=== PATIENT | female | born 1985 | race Caucasian/White ===

== ENCOUNTER 2018-11-14 20:36 | Emergency (ER) | payer OTHER ==
[2018-11-14 20:45] VITALS: PULSE 86; TEMP 98.5; BMI 31.1
--- NOTE | 2018-11-14 20:45 | PDOC ---
Rapid Medical Evaluation Time Seen by Provider: 11/14/18 20:38 Medical Evaluation: Allergies Allergy/AdvReac Type Severity Reaction Status Date / Time No Known Allergies Allergy Verified 06/05/16 07:56 11/14/18 20:42 I have performed a brief in-person evaluation of this patient. The patient presents with a chief complaint of: S/p dental extraction yesterday , on amox and tylenol #3 and now p/w epigastric pain which she has never had before. No n/v/d or fever Pertinent physical exam findings:Stable w/+ttp to epigastrium I have ordered the following:ua/preg The patient will proceed to the ED for further evaluation. Discharge Disposition - Diagnosis Epigastric abdominal pain - Referrals - Patient Instructions - Post Discharge Activity
[2018-11-14] MEDS ORDERED: SODIUM CHLORIDE 1,000 ML IV STA (21:08)
[2018-11-14] MEDS ORDERED: morphine CARPU-JECT 2 MG/1 ML DISP.SYRIN IVPUSH ONE (21:08)
--- NOTE | 2018-11-14 21:10 | PDOC ---
History of Present Illness - General Chief Complaint: Pain Stated Complaint: ABD PAIN & TOOTHACHE Time Seen by Provider: 11/14/18 20:38 - History of Present Illness Initial Comments: 11/14/18 21:10 Patient is a 33 year old female presents to the ED with complains of severe abdominal pain x 2 days. As per the patient, the pain started suddenly, located in the epigastric area, radiating towards the back, increasing in intensity, now 10/10, not associated with nausea, vomiting or diarrhoea but has decreased PO intake. Patient states she had a dental extraction done yesterday, has been taking the prescribed meds: Amoxicillin, Oxycodone and Ibuprofen. She states her abdominal pain started before she took the medications. Denies fever, chills, rigors, sweating, chest pain, sob, cough, palpitation, headache, loc. Bowel/Bladder habit normal. LMP: 11/13/18 Past Medical history: 4 c sections, last C-sec in 2017 complicated by bladder wall injury s/p repair. 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 Past History - Travel Traveled outside of the country in the last 30 days: No Close contact w/someone who was outside of country & ill: No - Past Medical History Allergies/Adverse Reactions: Allergies Allergy/AdvReac Type Severity Reaction Status Date / Time No Known Allergies Allergy Verified 11/14/18 20:45 Home Medications: Ambulatory Orders Ferrous Gluconate [Iron] 256 mg PO DAILY 03/07/16 Vit/Iron Fum/Folic AC [ Tablet] 1 each PO DAILY 03/07/16 Cephalexin [Keflex] 250 mg PO BID #20 capsule MDD 2 06/08/16 Ibuprofen [Motrin -] 600 mg PO QID #28 tablet 06/09/16 Oxycodone HCl/Acetaminophen [Percocet 5-325 mg Tablet] 1 tab PO Q6H PRN #30 tablet MDD 4 06/09/16 Calcium Carbonate/Simethicone [Maalox Advanced Tab Chew] 1 each PO Q6H PRN #28 tab.chew 11/14/18 Famotidine [Pepcid] 20 mg PO BID PRN #10 tablet 11/14/18 Asthma: No Cancer: No Cardiac Disorders: No COPD: No Diabetes: No HTN: No Seizures: No Thyroid Disease: No - Suicide/Smoking/Psychosocial Hx Smoking History: Never smoked Have you smoked in the past 12 months: No Hx Alcohol Use: No Drug/Substance Use Hx: No Hx Substance Use Treatment: No Review of Systems - Review of Systems Able to Perform ROS?: Yes *Physical Exam - Vital Signs Last Vital Signs Temp Pulse Resp BP Pulse Ox 98.5 F 86 18 108/72 96 11/14/18 20:41 11/14/18 20:41 11/14/18 20:41 11/14/18 20:41 11/14/18 20:41 - Physical Exam Comments: 11/14/18 21:51 General: Young female, lying in bed moaning of abdominal pain, awake, alert, oriented x 3, in no acute respiratory distress. HEENT: EOM intact, no pallor or icterus. Chest: B.L lungs clear, no added sounds CVS: Regular rate and rhythm, S1, S2, no murmur Abdomen: Soft, tenderness in the epigastric area, no organomegaly. Ext: No edema ED Treatment Course - LABORATORY CBC & Chemistry Diagram: 11/14/18 21:30 11/14/18 21:30 Medical Decision Making - Medical Decision Making 11/14/18 21:53 Patient is a 33 year old female PMHx of 4 c sections, last one complicated with bladder wall injury, tooth extraction yesterday comes in with severe epigastric pain. D/D: Gastritis Will order basic labs, UA --1L of NS --Morphine 2mg IV --Protonix 40mg IV 11/14/18 22:21 Labs normal 11/14/18 22:31 Patient is feeling better. Will give Maalox and PO tylenol. If she tolerates, will discharge her home. *DC/Admit/Observation/Transfer Diagnosis at time of Disposition: Epigastric abdominal pain - Discharge Dispostion Disposition: HOME Decision to Admit order: No - Prescriptions Prescriptions: Calcium Carbonate/Simethicone [Maalox Advanced Tab Chew] 1 each PO Q6H PRN #28 tab.chew PRN Reason: Dyspepsia Famotidine [Pepcid] 20 mg PO BID PRN #10 tablet PRN Reason: Dyspepsia - Referrals Referrals: Margret Mendoza MD [Primary Care Provider] - - Patient Instructions Additional Instructions: You were evaluated in the ED for severe epigastric pain, it was most likely because you are on antibiotics and Ibuprofen. Please make sure to drink plenty of water and take those medications with food. If you still experience epigastric burning pain, please take Maalox and Pepcid 20mg twice a day. Please make an appointment and follow up with your primary physician within this week. If your symptoms get worse or you develop any new symptoms, please come to the ED immediately. Fue evaluado en el servicio de urgencias para el dolor epigstrico chintan, lo ms probable es que est tomando antibiticos e ibuprofeno. Por favor, asegrese de beber denae agua y carolina esos medicamentos con alimentos. Si an experimenta dolor de ardor epigstrico, tome Maalox y Pepcid 20 mg dos veces al da. Por favor himanshu saravanan shekhar y himanshu un seguimiento con lynn mdico de cabecera dentro de esta semana. Si nitin sntomas empeoran o si presenta sntomas nuevos, acuda al servicio de urgencias de inmediato. - Post Discharge Activity
[2018-11-14] MEDS ORDERED: MORPHINE SULFATE 2 MG/ML VIAL ONE (21:18)
[2018-11-14 21:44] LABS: HEMOGLOBIN 13.9 GM/dL (10.7-15.3); MCHC 33.8 g/dl (32.0-36.0); MEAN CELL VOLUME 88.8 fl (80-96); PLATELET COUNT 154 K/MM3 (134-434); RBC 4.62 M/mm3 (3.60-5.2); RDW 13.1 % (11.6-15.6); WHITE BLOOD COUNT 7.1 K/mm3 (4.0-10.0)
[2018-11-14] MEDS ORDERED: PANTOPRAZOLE SODIUM 40 MG VIAL IVPUSH ONE (21:58)
[2018-11-14 22:11] LABS: ALBUMIN 3.6 g/dl (3.4-5.0); BILIRUBIN,TOTAL 0.2 mg/dL (0.2-1); BLOOD UREA NITROGEN 6.6 mg/dL (7-18); POTASSIUM 4.1 mmol/L (3.5-5.1); TOT PROT 7.3 g/dl (6.4-8.2)
[2018-11-14 22:12] LABS: CREATININE 0.8 mg/dL (0.55-1.3)
--- NOTE | 2018-11-14 22:13 | PDOC ---
Documentation entered by Malcolm Morocho SCRIBE, acting as scribe for Alea Vasquez MD. Alea Vasquez MD: This documentation has been prepared by the Rashawn sim Elijah, SCRIBE, under my direction and personally reviewed by me in its entirety. I confirm that the documentation accurately reflects all work, treatment, procedures, and medical decision making performed by me. Attending Attestation - Resident Resident Name: Juanita Steele - ED Attending Attestation I have performed the following: I have examined & evaluated the patient, The case was reviewed & discussed with the resident, I agree w/resident's findings & plan - HPI HPI: 11/14/18 21:35 Patient is a 33 year old female with a significant past medical history of 4 C- sections (last C-sec in 2017 complicated by bladder wall injury s/p repair) who presents to the ED with epigastric abdominal pain x 2 days, beginning yesterday. The patient reports the pain as severe, cramping, 10/10 intensity and is associated with a decreased PO intake. The patient had dental surgery the day prior and was prescribed Amoxicillin, Oxycodone, and Ibuprofen which she has been taking since yesterday. Denies fever, chills, chest pain, SOB, palpitation, dizziness, weakness, N, V, D , abdominal pain, bladder and bowel problems, leg swelling, No sick contacts or travel. No new changes in medications. No suspicious food intake Allergies: None Past Medical History: as documented in EMR/HPI Social history: Lives with family. No tobacco, ETOH or drug use. Surgical history: As mentioned above Meds: as documented in EMR PMD: Dr. Mendoza 11/14/18 22:48 - Physicial Exam PE: 11/14/18 22:13 Agree with the resident's HPI and PE as documented in the electronic medical record. NAD, well appearing, EOMI, PERRL, MMM, nl conjunctiva, anicteric; neck supple. lungs clear, RRR, abdomen soft +epigastric TTP, no Quiles's sign. no flank tenderness. Back nontender. CARVALHO x4, No peripheral edema. normal color for ethnicity, WWP. 11/14/18 22:46 11/14/18 22:48 - Medical Decision Making 11/14/18 22:47 hpi as documented VS reviewed, wnl DDx abdominal pain: Renal colic, biliary colic, metabolic/electrolyte derangements. GERD, PUD, esophageal spasm, pancreatitis, hepatitis, constipation , colitis, gastroenteritis, cholecystitis, medication side effect, hernia ED course: analgesia, IVF and maalox. GI cocktail no quiles's sign more likely amoxicillin effect, ?dyspepsia vs PUD vs GERD onset of sx overlapping with initiation of amoxicillin and menses take meds with food, avoid nsaids in case of gastritis clinically doubt biliary, cholecystitis or intra abdominal pathology. supportive care, otc pepcid and maalox, take abx with food to prevent trigger. Pt to be discharged in stable condition. Patient and family made aware of clinical impression, treatment recommendations and disposition plan, return precautions discussed (including but not limited to new or persistent/worsening symptoms, pain, fevers, or signs of infection, chest pain, respiratory distress , inability to tolerate oral intake, dehydration, syncope, or neurologic changes ). Follow up with PMD and/or GI specialist as recommended, follow up information provided, take medications as instructed for duration of time. continue with supportive care, avoid triggers and precipitants. All questions answered to patient's satisfaction and expressed understanding and comfort with this. At the time of discharge, the patient is alert, clinically improved, tolerating po and verbalizes understanding of instructions, satisfied with the care received and felt comfortable with the plan. Patient does not suffer from an acute life-threatening medical condition at this time and is safe for outpatient follow-up. 11/14/18 22:49
[2018-11-14] MEDS ORDERED: MAG HYDROX/AL HYDROX/SIMETH 30 ML UNIT-DOSE CUP PO ONE (22:19)
[2018-11-14] MEDS ORDERED: ACETAMINOPHEN 325 MG TABLET (FP) PO ONE (22:31)
[2018-11-14 23:16] VITALS: BP 109/68
[2018-11-14] MEDS ORDERED: PANTOPRAZOLE SODIUM 40 MG VIAL ONE (23:28)
[2018-11-14] MEDS ORDERED: MAG HYDROX/AL HYDROX/SIMETH 30 ML UNIT-DOSE CUP ONE (23:28)
== END 2018-11-14 23:39 | disposition home or self-care (01) ==
LOC: JER 20:36
PROC: 3E0337Z Introduction of Electrolytic and Water Balance Substance into Peripheral Vein, Percutaneous Approach (ICD-10-PCS; principal; 2018-11-14)
PROC: 3E033NZ Introduction of Analgesics, Hypnotics, Sedatives into Peripheral Vein, Percutaneous Approach (ICD-10-PCS; 2018-11-14)
DX: R10.13 Epigastric pain (principal)
CPT/HCPCS: 36415; 80053; 83605; 83690; 85027; 96361; 96374; 99282-25; J7030

== ENCOUNTER 2019-01-25 22:05 | Emergency (ER) | payer OTHER ==
[2019-01-25 22:17] VITALS: BP 102/70; PULSE 73; TEMP 98.2; BMI 31.1
--- NOTE | 2019-01-25 23:38 | PDOC ---
Attending Attestation - Resident Resident Name: Mateo Antony - ED Attending Attestation I have performed the following: I have examined & evaluated the patient, The case was reviewed & discussed with the resident, I agree w/resident's findings & plan, Exceptions are as noted - HPI HPI: 01/25/19 23:37 33 yo female p/w 3 days of dizziness,anxiety,syncopal episodes at home yesterday and the day prior, . she was already at the hospital earlier today for pelvic ultrasound for that showed IUD placement and no other significant findings 01/26/19 01:01 01/26/19 01:03 - Physicial Exam PE: 01/26/19 01:03 wnwd 33 yo female seated in chair and she is not in any acute distress head ncat eyes eomi neck supple lungs cta b/l cvs [id number] abd no rebound, no guarding no cva tenderness skin warm and dry neuro axox3,ambulatory 01/26/19 01:05 - Medical Decision Making 01/26/19 01:09 ekg sinus bradycardia @ 58 bpm 01/26/19 01:12 psh c section x 4, bladder wall injury s/p repair pt was upset with her care because it was taking too long she refused to sign any AMA documentation and stated she ws going to [facility] and left
[2019-01-25] MEDS ORDERED: LACTATED RINGERS SOLUTION 1000 ML INFUS.BAG IV ONE (23:46)
--- NOTE | 2019-01-26 00:05 | PDOC ---
History of Present Illness - General Chief Complaint: Pain Stated Complaint: NAUSEA Time Seen by Provider: 01/25/19 22:37 History Source: Patient - History of Present Illness Initial Comments: 01/26/19 01:44 Ms. Giles is a 33 y/o woman with no PMH presenting with a 3 day history of dizziness, anxiety, and 2x episodes of syncopal episodes at home. She reports that 3 days ago she was prescribed doxycycline for a UTI by her PCP. She reports that since starting the medication she has noted anxiety as well as dizziness. She reports that 3 days ago after taking her first dose of the doxycycline, she became lightheaded when standing from her bed and lost consciousness. She reports that her mother found her on the ground. She reports that she does not remember the entire fall. She denies any head or neck pain or stiffness. She reports a second syncopal episode the following day at home, and at that point became concerned that the anxiety and lightheadedness were due to more than "stress at work". She presented earlier today for a transvaginal ultrasound ordered by her PCP due to several months of ongoing vaginal bleeding that has been present since her IUD placement in June. She denies any history of prior syncopal episodes, any chest pain, shortness of breath, night sweats, known cardiac history. She reports that she has an appointment with her PCP in two weeks (02/05/2019). She reports allergy to amoxicillin. PCP: Remberto Carlin Past History - Past Medical History Allergies/Adverse Reactions: Allergies Allergy/AdvReac Type Severity Reaction Status Date / Time No Known Allergies Allergy Verified 01/25/19 22:11 Home Medications: Ambulatory Orders Ferrous Gluconate [Iron] 256 mg PO DAILY 03/07/16 Vit/Iron Fum/Folic AC [ Tablet] 1 each PO DAILY 03/07/16 Cephalexin [Keflex] 250 mg PO BID #20 capsule MDD 2 06/08/16 Ibuprofen [Motrin -] 600 mg PO QID #28 tablet 06/09/16 Oxycodone HCl/Acetaminophen [Percocet 5-325 mg Tablet] 1 tab PO Q6H PRN #30 tablet MDD 4 06/09/16 Calcium Carbonate/Simethicone [Maalox Advanced Tab Chew] 1 each PO Q6H PRN #28 tab.chew 11/14/18 Famotidine [Pepcid] 20 mg PO BID PRN #10 tablet 11/14/18 Asthma: No Cancer: No Cardiac Disorders: No COPD: No Diabetes: No HTN: No Seizures: No Thyroid Disease: No - Suicide/Smoking/Psychosocial Hx Smoking History: Never smoked Have you smoked in the past 12 months: No Hx Alcohol Use: No Drug/Substance Use Hx: No Hx Substance Use Treatment: No Review of Systems - Review of Systems Able to Perform ROS?: Yes Comments:: 01/26/19 01:40 ROS: GENERAL/CONSTITUTIONAL: No fever or chills. No weakness. HEAD, EYES, EARS, NOSE AND THROAT: No change in vision. No ear pain or discharge. No sore throat. CARDIOVASCULAR: No chest pain or shortness of breath RESPIRATORY: No cough, wheezing, or hemoptysis. GASTROINTESTINAL: Nausea. No vomiting, diarrhea or constipation. GENITOURINARY: Vaginal bleeding, discharge. UTI in treatment. MUSCULOSKELETAL: No joint or muscle swelling or pain. No neck or back pain. SKIN: No rash NEUROLOGIC: Headache, anxiety, loss of conciousness x2. No vertigo, or change in strength/sensation. ENDOCRINE: No increased thirst. No abnormal weight change HEMATOLOGIC/LYMPHATIC: No known anemia, easy bleeding, or history of blood clots. ALLERGIC/IMMUNOLOGIC: No hives or skin allergy. *Physical Exam - Vital Signs Last Vital Signs Temp Pulse Resp BP Pulse Ox 98.2 F 73 16 102/70 100 01/25/19 22:12 01/25/19 22:12 01/25/19 22:12 01/25/19 22:12 01/25/19 22:12 - Physical Exam Comments: 01/26/19 01:43 PE: GENERAL: Awake, alert, and fully oriented, in no acute distress HEAD: No signs of trauma, normocephalic, atraumatic EYES: PERRLA, EOMI, sclera anicteric, conjunctiva clear ENT: Auricles normal inspection, hearing grossly normal, nares patent, oropharynx clear without exudates. Moist mucosa NECK: Normal ROM, supple, no lymphadenopathy, JVD, or masses LUNGS: No distress, speaks full sentences, clear to auscultation bilaterally HEART: Regular rate and rhythm, normal S1 and S2, no murmurs, rubs or gallops, peripheral pulses normal and equal bilaterally. ABDOMEN: Soft, nontender, normoactive bowel sounds. No guarding, no rebound. No masses EXTREMITIES : Normal inspection, Normal range of motion, no edema. No clubbing or cyanosis NEUROLOGICAL: Cranial nerves II through XII grossly intact. Normal speech, normal gait, no focal sensorimotor deficits SKIN: Warm, Dry, normal turgor, no rashes or lesions noted Medical Decision Making - Medical Decision Making 33 y/o F with 2x syncopal episodes over last 3 days with ongoing dizziness after 7 months of ongoing vaginal bleeding after IUD placement. Differential includes anemia given mcc vaginal bleeding, electrolyte abnormality, cardiac etiology. Plan: CBC CMP EKG 1L LR bolus Dispo: Pending --- Patient reporting frustration that she wants to leave as she is accompanied by her young daughter and is frustrated that it is late at night and she still feels the same as her arrival. Her labs have not yet been drawn, nor the EKG completed or fluid bolus administered. She reports that she wants to instead present to [facility]. Discussed our concern for the syncopal episodes , including the possibility that her hemoglobin levels were low or there was another unknown cause of her symptoms. Counseled regarding risks of leaving without complete evaluation, including , repeat syncopal episodes, or worsening of symptoms. She is of sound mind, fully alert and oriented, she is not intoxicated, and she has the capacity to make her own medical decisions. She refused to sign the AMA paperwork, reporting that she will not sign as she is not satisfied with her service at this hospital. Discussed that if she were to change her mind she would be welcome back at this hospital, and encouraged her to immediately report to another hospital, as well as to keep her appointment with her primary care provider in two weeks. *DC/Admit/Observation/Transfer Diagnosis at time of Disposition: Syncope Qualifiers: Syncope type: unspecified Qualified Code(s): R55 - Syncope and collapse - Discharge Dispostion Disposition: AGAINST MEDICAL ADVICE Condition at time of disposition: Stable Decision to Admit order: No - Referrals - Patient Instructions Additional Instructions: Patient left AMA before written instructions could be prepared. Discussed risks of leaving without complete workup with her as described in MDM, and encouraged her to seek immediate treatment and to return if she changes her mind. - Post Discharge Activity
== END 2019-01-26 01:10 | disposition left against medical advice (07) ==
LOC: JER 22:05
DX: R55 Syncope and collapse (principal); N92.1 Excessive and frequent menstruation with irregular cycle
CPT/HCPCS: 99282-25

== ENCOUNTER 2025-01-14 06:09 | Day surgery (SDC) | payer OTHER ==
[2025-01-12 10:44] VITALS: BMI 32.0
[2025-01-14] MEDS ORDERED: LIDOCAINE HCL 2% (20ML MULTI-DOSE VIAL) ONE (07:09)
[2025-01-14] MEDS ORDERED: LIDOCAINE HCL 2% 100 MG/5 ML DISP.SYRIN ONE (07:32)
[2025-01-14] MEDS ORDERED: MIDAZOLAM HCL 2 MG/2 ML SINGLE DOSE VIAL ONE (07:33)
[2025-01-14] MEDS ORDERED: PROPOFOL 20 ML ONE ×3 (07:33→08:04)
[2025-01-14] MEDS ORDERED: LIDOCAINE 1%/EPI 1:100000 (20 ML MULTI DOSE VIAL) ONE (07:46)
[2025-01-14] MEDS ORDERED: ONDANSETRON 4 MG/2 ML VIAL IVPUSH PRN (08:26)
[2025-01-14] MEDS ORDERED: LACTATED RINGERS SOLUTION 1,000 ML IV SCH (08:30)
[2025-01-14] MEDS ORDERED: ACETAMINOPHEN INJECTION 100 ML ONE (08:33)
[2025-01-14] MEDS: ACETAMINOPHEN 1000 MG/100 ML BAG IVPB ONE (08:50)
[2025-01-14 09:17] VITALS: RESP 16; TEMP 97.5
[2025-01-14 10:12] VITALS: BP 126/75; PULSE 76
[2025-01-14] MEDS ORDERED: ACETAMINOPHEN 325 MG TABLET (FP) PO PRN (13:30)
== END 2025-01-14 09:40 | disposition home or self-care (01) ==
LOC: FASU 06:09
PROVIDERS: ATTEND Orthopaedic Surgery Sports Medicine
PROC: 0LB70ZZ Excision of Right Hand Tendon, Open Approach (ICD-10-PCS; 2025-01-14)
PROC: 0LN70ZZ Release Right Hand Tendon, Open Approach (ICD-10-PCS; principal; 2025-01-14 07:57)
DX: M65.341 Trigger finger, right ring finger (principal); M65.841 Other synovitis and tenosynovitis, right hand
CPT/HCPCS: 81025; 88304-TC; 94760